=== PATIENT | male | born 1960 | race African-American/Black ===

== ENCOUNTER 2020-12-02 09:36 | Emergency (ER) | payer MEDICAID ==
[~2020-12-02] VITALS: Ht 188 cm; Wt 118.0 kg
[~2020-12-02 09:36] MED LIST: AMLO10TA80 PO; BENA40TA9 PO; METF-414 PO
[2020-12-02 10:23] VITALS: BP 149/84
[2020-12-02] MEDS ORDERED: KETOROLAC 30MG/ML VIAL IM ONE (10:45)
[2020-12-02] MEDS ORDERED: NAPR-681 MT (11:51)
== END 2020-12-02 12:06 | disposition home or self-care (01) ==
LOC: ER 09:36
DX: M16.12 Unilateral primary osteoarthritis, left hip (principal); E11.9 Type 2 diabetes mellitus without complications; Z98.890 Other specified postprocedural states
CPT/HCPCS: 73502; 96372; 99283; J1885